=== PATIENT | female | born 1970 | race Caucasian/White ===

== ENCOUNTER 2025-09-06 08:13 | Inpatient (IN) | payer OTHER ==
[~2025-09-06] VITALS: Ht 165.1 cm; Wt 59.0 kg
[2025-09-06] MEDS ORDERED: LORAZEPAM INJ 2 MG/ML VIAL ONE ×2 (08:39→12:54)
[2025-09-06] MEDS: LORAZEPAM INJ 2 MG/ML VIAL IV ONE ×2 (08:46→12:55)
[2025-09-06 09:36] LABS: PLATELET COUNT (AUTO) 158 K/uL (150-450); RED BLOOD CELL COUNT(AUTO) 5.02 MIL/uL (4.0-5.2); RED CELL DISTRIBUTION WIDTH 14.5 % (11.5-15.0); WHITE BLOOD COUNT (AUTO) 3.3 K/uL (4.3-11.0)
[2025-09-06 09:52] LABS: CALCIUM, SERUM 8.8 mg/dL (8.5-10.1); CREATININE 1.0 mg/dL (0.6-1.3); SODIUM SERUM 141 mmol/L (136-145); UREA NITROGEN, BLOOD 18 mg/dL (7-18)
[2025-09-06 09:57] LABS: ALCOHOL, BLOOD < 3 mg/dL (0-10); ASPARTATE AMINOTRANSFERASE 23 U/L (15-37); TOTAL PROTEIN, SERUM 7.1 g/dL (6.4-8.2)
[2025-09-06 10:43] LABS: APPEARANCE,URINE CLEAR (CLEAR); BLOOD, URINE NEGATIVE Ery/uL (NEGATIVE); LEUKOCYTE ESTERASE ,URINE TRACE (NEGATIVE); NITRITE, URINE NEGATIVE (NEGATIVE); UGLUCOSE NEGATIVE (NEGATIVE)
[2025-09-06 10:47] LABS: AMPHETAMINE, URINE NEGATIVE (NEGATIVE); BARBITURATE, URINE NEGATIVE (NEGATIVE); BENZODIAZEPINE, URINE NEGATIVE (NEGATIVE); CANNABINOID, URINE NEGATIVE (NEGATIVE); COCCAINE, URINE NEGATIVE (NEGATIVE); OPIATE, URINE NEGATIVE (NEGATIVE)
[2025-09-06 10:48] LABS: ADD URINE CULTURE NO
[2025-09-06] MEDS ORDERED: Magnesium 1GM/D5W 100ML PREMIX 100 ML IV ONE (12:53)
[2025-09-06] MEDS ORDERED: dexaMETHasone SOD PHOSPHATE 1 ML ONE (12:53)
[2025-09-06] MEDS ORDERED: PROCHLORPERAZINE EDISYLATE 10 MG/2 ML VIAL ONE (12:53)
[2025-09-06] MEDS ORDERED: PRED20TA PO (12:54)
[2025-09-06] MEDS ORDERED: THYR120T2 PO (12:54)
[2025-09-06] MEDS ORDERED: AIRSUPRA IH (12:54)
[2025-09-06] MEDS ORDERED: LITH150C PO (12:54)
[2025-09-06] MEDS ORDERED: ALBU18HF2 INH (12:54)
[2025-09-06] MEDS ORDERED: QUET50TA15 PO (12:54)
[2025-09-06] MEDS ORDERED: LAMO200T10 PO (12:54)
[2025-09-06] MEDS ORDERED: IPRA3AMP23 IH (12:54)
[2025-09-06] MEDS ORDERED: TESTOSTERONE (12:54)
[2025-09-06] MEDS ORDERED: PROP10TA68 PO (12:54)
[2025-09-06] MEDS ORDERED: RIME75TA PO (12:54)
[2025-09-06] MEDS ORDERED: RIZA10TA98 PO (12:54)
[2025-09-06] MEDS ORDERED: MONT10TA22 PO (12:54)
[2025-09-06] MEDS: PROCHLORPERAZINE EDISYLATE 10 MG/2 ML VIAL IVP ONE (12:55)
[2025-09-06] MEDS: dexaMETHasone SOD PHOSPHATE 10 MG/ML VIAL IV ONE (12:55)
[2025-09-06] MEDS: Magnesium 1GM/D5W 100ML PREMIX 100 ML IV SCH (13:00)
[2025-09-06] MEDS ORDERED: MAGNESIUM HYDROXIDE 30 ML UDC PO PRN (15:30)
[2025-09-06] MEDS ORDERED: ACETAMINOPHEN 325 MG TABLET PO PRN (15:30)
[2025-09-06] MEDS ORDERED: RIMEGEPANT SULFATE PO PRN (15:30)
[2025-09-06] MEDS ORDERED: Z GUARD REMEDY 4 OZ OINT TP PRN (15:30)
[2025-09-06] MEDS ORDERED: MAG HYDROX/AL HYDROX/SIMETH 30 ML UDC PO PRN (15:30)
[2025-09-06] MEDS ORDERED: RIZATRIPTAN BENZOATE 10 MG PO PRN (15:30)
[2025-09-06] MEDS ORDERED: ONDANSETRON HCL/PF 4 MG/2 ML VIAL IVP PRN (15:30)
[2025-09-06] MEDS ORDERED: IPRATROPIUM NEB FS 0.5 MG/2.5 ML AMPUL.NEB NEB PRN (16:00)
[2025-09-06] MEDS ORDERED: ALBUTEROL FS 2.5 MG/3 ML VIAL.NEB NEB PRN (16:00)
[2025-09-06] MEDS: PROPRANOLOL HCL 10 MG TABLET PO SCH (16:08)
[2025-09-06] MEDS: ASPIRIN 81 MG TAB.CHEW PO SCH (16:08)
[2025-09-06] MEDS: LITHIUM CARBONATE 150 MG CAPSULE PO SCH (16:11)
[2025-09-06 16:47] VITALS: BP 103/73; TEMP 98.4; O2SAT 97
[2025-09-06 20:00] VITALS: BP 94/67; TEMP 98.2; O2SAT 98
[2025-09-06] MEDS: MONTELUKAST SODIUM (10MG) 10 MG TABLET PO SCH (21:22)
[2025-09-06 23:43] VITALS: BP 93/60; TEMP 97.4; O2SAT 96
[2025-09-07 03:43] VITALS: BP 100/72; TEMP 98.1; O2SAT 96
[2025-09-07 08:00] VITALS: BP 103/68; TEMP 97.7; O2SAT 99
[2025-09-07 08:29] LABS: PLATELET COUNT (AUTO) 159 K/uL (150-450); RED BLOOD CELL COUNT(AUTO) 4.68 MIL/uL (4.0-5.2); RED CELL DISTRIBUTION WIDTH 14.7 % (11.5-15.0); WHITE BLOOD COUNT (AUTO) 5.6 K/uL (4.3-11.0)
[2025-09-07 08:53] LABS: CALCIUM, SERUM 8.4 mg/dL (8.5-10.1); CREATININE 0.9 mg/dL (0.6-1.3); PHOSPHORUS 4.4 mg/dL (2.5-4.9); SODIUM SERUM 139.0 mmol/L (136-145); UREA NITROGEN, BLOOD 19.0 mg/dL (7-18)
[2025-09-07] MEDS: THYROID 30 MG TABLET PO SCH (08:55)
[2025-09-07 10:00] VITALS: BP 121/78; O2SAT 100
[2025-09-07] MEDS ORDERED: LORAZEPAM 1 MG TABLET PO PRN (10:00)
[2025-09-07] MEDS ORDERED: IOHEXOL-350 100 ML VIAL IV ONE (11:40)
[2025-09-07] MEDS ORDERED: IV NS 0.9% 250 ML IV ONE (11:40)
[2025-09-07 12:49] VITALS: BP 121/78; O2SAT 100
[2025-09-07 13:00] VITALS: BP 121/78
== END 2025-09-07 13:35 | disposition home or self-care (01) | DRG 101 ==
LOC: ER 08:24 → TELE-TD 13:36 → TELE1 14:17
PROVIDERS: ADMIT Internal Medicine; ATTEND Internal Medicine
DX: R56.9 Unspecified convulsions (principal); R47.01 Aphasia; F31.30 Bipolar disorder, current episode depressed, mild or moderate severity, unspecified; F43.0 Acute stress reaction
CPT/HCPCS: 36415; 70450-TC; 70496-TC; 70498-TC; 80048-TC; 80076-TC; 81001; 83735-TC; 84100-TC; 84439-TC; 84443-TC; 84481; 85025-TC; 93880-TC; A4223; G0378; G0480; J0780; J1100; J1200; J2060; J3475; J7050; Q9967